=== PATIENT | male | born 1975 | race African-American/Black ===

== ENCOUNTER 2017-01-26 02:09 | Inpatient (IN) ==
[2017-01-26] MEDS ORDERED: FUROSEMIDE 100 MG/10 ML VIAL IV STA (04:43)
[2017-01-26] MEDS ORDERED: MORPHINE 2 MG/1 ML SYRINGE IV STA (04:43)
[2017-01-26] MEDS ORDERED: NITROGLYCERIN 2% OINT 1 INCH/GM PACK TOP STA (04:43)
[2017-01-26] MEDS ORDERED: ONDANSETRON 4 MG/2 ML VIAL IV STA (04:43)
[2017-01-26] MEDS ORDERED: hydrALAZINE 20 MG/1 ML VIAL IV STA ×2 (04:43→06:01)
[2017-01-26] MEDS ORDERED: ASPIRIN 325 MG TABLET PO STA (04:43)
[2017-01-26] MEDS ORDERED: hydrALAZINE 20 MG/1 ML VIAL ONE ×2 (04:56→06:20)
[2017-01-26] MEDS ORDERED: NITROGLYCERIN 2% OINT 1 INCH/GM PACK TOP ONE (04:56)
[2017-01-26] MEDS ORDERED: MORPHINE 2 MG/1 ML SYRINGE ONE (04:57)
[2017-01-26] MEDS ORDERED: FUROSEMIDE 40 MG/4 ML VIAL ONE (04:57)
[2017-01-26] MEDS ORDERED: ASPIRIN 325 MG TABLET ONE (04:57)
[2017-01-26] MEDS ORDERED: ONDANSETRON 4 MG/2 ML VIAL ONE (04:57)
[2017-01-26] MEDS ORDERED: FUROSEMIDE 20 MG/2 ML VIAL ONE (04:57)
--- NOTE | 2017-01-26 05:22 | Emergency Department Note ---
Bernabe Pickard Brittany, am scribing for, and in the presence of, Francisco Mayes MD 05:03. Gerber Pickard Charles R, MD, personally performed the services described in this documentation, ascribed by Dariela Kidd in my presence, and it is both accurate and complete . Arrival - Arrival Chief Complaint: Extremity Problem Stated Complaint: fluid problem ED Nursing Triage Note: C/O Swelling to legs. Onset approx one month. Pt states that he tried to see his PCP last week, but he was out of town. Reports medication complaince. Denies chest pain or shortness of breath Mode of Arrival: Ambulatory Limitations: No Limitations Source: Patient, RN Notes Reviewed - History of Present Illness HPI Narrative: Patient is a 41 y/o black male presenting to the ED with c/o bilateral lower extremity swelling and tightness that began two weeks ago, worsening tonight. Patient denies having any associated chest pain, SOB, or wheezing. Patient reports that he attempted to see PCP about this, but Dr. Snyder was out at the time he attempted to have this visit. He denies previous diagnosis of HF. Does have a history of Diabetes Mellitus. Denies tobacco use. No history of Sleep Apnea. Patient is hypertensive on the monitor with a blood pressure reading of 190/126 mmHg. Reports a history of HTN. No further complaints. Allergies/Adverse Reactions: Allergies Allergy/AdvReac Type Severity Reaction Status Date / Time Penicillins Allergy RASH Verified 11/09/16 01:52 Home Medications: Home Medications Medication Instructions Recorded Confirmed Type Quinapril [Accupril] 20 mg PO DAILY 10/01/14 01/26/17 History glipiZIDE [Glucotrol] 10 mg PO BIDAC 10/01/14 01/26/17 History metFORMIN [Glucophage] 500 mg PO BID W/MEALS 10/01/14 01/26/17 History Bumetanide 2 mg PO DAILY 01/26/17 01/26/17 History Review of System - Review of System 12 point system: reviewed and no additional remarkable complaints except as stated - Review of System Respiratory: Absent: respiratory distress, wheezing Cardiovascular: Present: edema. Absent: chest pain Gastrointestinal: Absent: abdominal pain, nausea, vomiting Genitourinary male: Absent: urgency, dysuria, frequency Musculoskeletal: Present: other (lower extremity tightness). Absent: arm pain, back pain, leg pain, neck pain Skin: Absent: rash Neurological: Absent: headache Medical,Surgical,& Family Hx - Medical History Cardio: History of: Hypertension Endocrine: History of: Diabetes Mellitus (NIDDM) - Social History Smoking Status: Never smoker Frequency of Alcohol Use: None Type of Drug Use: None Exam Vital Signs: Vital Signs Temperature 98.0 F 01/26/17 02:18 Pulse Rate 102 H 01/26/17 02:18 Respiratory Rate 20 01/26/17 02:18 Blood Pressure 193/122 01/26/17 02:18 O2 Sat by Pulse Oximetry 98 01/26/17 02:18 - General General appearance: alert, in no apparent distress, obese (morbidly) - Head Head exam: Present: atraumatic, normocephalic - Eye Eye exam: Present: PERRL, EOMI - ENT ENT exam: Present: normal exam, normal oropharynx - Neck Neck exam: Present: normal inspection, full ROM, trachea midline - Chest Chest inspection: Present: normal inspection, symmetric chest wall rise - Respiratory Respiratory exam: Present: rales (basilar). Absent: normal lung sounds bilaterally - Cardiovascular Cardiovascular exam: Present: normal rhythm, tachycardia, normal heart sounds. Absent: regular rate - Abdominal Exam Abdominal exam: Present: soft, distention, normal bowel sounds. Absent: tenderness - Extremities Exam Extremities exam: Present: pedal edema (+3 edema to bilateral lower extremities) . Absent: calf tenderness, other (Shoaib's sign) - Back Exam Back exam: Present: normal inspection - Neurological Exam Neurological exam: Present: alert, oriented X3, CN II-XII intact. Absent: motor sensory deficit - Psychiatric Psychiatric exam: Present: normal affect, normal mood - Skin Skin exam: Present: warm, dry, intact, normal color Course - Consultations Consultation #1: Hospitalist will admit patient Time: 06:06 Results - Labs CBC & BMP: 01/26/17 05:18 01/26/17 05:18 Lab Results: I have reviewed the patients labs Labs: Laboratory Tests 01/26/17 05:18 WBC 9.8 RBC 4.93 Hgb 14.0 Hct 42.7 MCV 86.6 L Plt Count 237 Lymph % (Auto) 21.0 L [place] # (Auto) 1.1 H Critical Care Time Critical Care Time: Yes Total Critical Care Time: 60 Disposition Clinical Impression: Lower extremity edema, Hypertensive urgency, CHF (congestive heart failure), Hyperglycemia Case discussed with: patient Disposition: Still a Patient Condition: Guarded Time of Disposition: 06:07
--- NOTE | 2017-01-26 05:22 | EKG Report ---
Stationary ECG Study [facility] ER Test Date: 01/26/2017 5:20:55 AM Pat Name: ANTHONY MENCHACA Department: Room: 122 Gender: M Nitro Man: : 1975 Requested by: Francisco Melgar Order Number: [id number] Reading MD: TRUDI JOSUE Intervals [place] Rate: 102 P: 59 AR: 156 QRS: -18 QRSD: 106 T: 62 QT: 368 QTc: 427 Interpretive Statements SINUS TACHYCARDIA Electronically Signed On 01-26-17 17:59:55 CDT by TRUDI JOSUE [email or web address]
[2017-01-26 05:26] LABS: Basophils # 0.1 10*3/uL (0.0-0.2); Basophils % 0.6 % (0.0-0.8); Eosinophils # 0.4 10*3/uL (0.0-0.87); Eosinophils % 3.6 % (0.00-10.9); Hematocrit 42.7 VOL% (42.0-52.0); Immature Granulocytes % 0.2 %; Immature Granulocytes Absolute 0.02 #; Lymphocytes # 2.1 10*3/uL (1.4-4.0); Mean Corpuscular HGB Conc 32.8 GM/DL (32-36); Mean Corpuscular Hemoglobin 28 PG (27-34); Mean Corpuscular Volume 86.6 FL (87-102); Mean Platelet Volume 11.4 FL (9.6-12.0); Monocytes # 1.1 10*3/uL (0.11-0.8); Monocytes % 10.7 % (1.7-12.7); Neutrophils # 6.3 10*3/uL (1.4-7.4); Neutrophils % 63.9 % (38.7-73.9); Platelet Count 237 T/CUMM (130-400); Red Blood Count 4.93 MC/CUMM (3.8-5.5); Red Cell Distribution Width 13.9 % (9.3-17.3); White Blood Count 9.8 T/CUMM (4-12)
[2017-01-26 05:33] LABS: PT Patient Result 10.6 SECS
[2017-01-26 05:39] LABS: Apearance,Urine CLEAR (Clear); Bilirubin,Urine Negative (Negative); Blood, Urine Moderate mg/dL (Negative); Glucose,Urine (UA) >=500 mg/dL (Negative); Hyaline Casts,Urine 1 /LPF (0-3); Ketones,Urine Negative (Negative); Nitrite,Urine Negative (Negative); Protein,Urine >=500 MG/DL; RBC,Urine 12 /HPF (0-4); Urine Color Yellow (Yellow); Urine Specific Gravity 1.022 (1.001-1.035); Urine Urobilinogen < 2.0 EU/DL (0.2-1.0); WBC,Urine <1 /HPF (0-6)
[2017-01-26 05:44] LABS: Barbiturates Screen,Urine Negative (Negative); Benzodiazepines Screen,Urine Negative (Negative); Cannabinoid Screen,Urine Negative (Negative); Opiate Screen,Urine Negative (Negative); Phencyclidine Screen,Urine Negative (Negative)
[2017-01-26 06:19] LABS: Alanine Aminotransferase 27 U/L (16-61); Albumin 3.1 G/DL (3.4-5.0); Alkaline Phosphatase 98 U/L (45-117); Aspartate Amino Transferase 19 U/L (0-37); Bilirubin,Total < 0.39 MG/DL (0.2-1.0); Blood Urea Nitrogen 21 MG/DL (7-18); Calcium 8.9 MG/DL (8.5-10.1); Glucose 358 MG/DL (74-106); Magnesium 2.3 MG/DL (1.8-2.4); Osmolality,Calculated 286.1 MOS/KG (273-304); Sodium 135 MMOL/L (136-145); Total Protein 6.7 G/DL (6.4-8.3); Troponin I Only 0.036 NG/ML (0.00-0.045)
[2017-01-26] MEDS ORDERED: niCARdipine 25 MG/10 ML VIAL IV ONE (06:20)
[2017-01-26] MEDS ORDERED: INSULIN REGULAR 100 UNIT/ML SUBCUT STA (06:22)
[2017-01-26] MEDS ORDERED: INSULIN REGULAR 100 UNIT/ML ONE (06:43)
[2017-01-26] MEDS: niCARdipine INJ 25 MG in SODIUM CHLORIDE 0.9% 240 ML IV SCH ×3 (06:45→21:41)
[2017-01-26] MEDS ORDERED: ACETAMINOPHEN 325 MG TABLET PO PRN (06:56)
[2017-01-26] MEDS ORDERED: ZALEPLON 5 MG CAPSULE PO PRN (06:56)
[2017-01-26] MEDS ORDERED: ONDANSETRON 4 MG/2 ML VIAL IV PRN (06:56)
[2017-01-26] MEDS ORDERED: GLUCAGON 1 MG VIAL IM PRN (06:56)
[2017-01-26] MEDS ORDERED: DEXTROSE 50% 25 GM/50 ML SYRINGE IV PRN (06:56)
[2017-01-26] MEDS ORDERED: MORPHINE 2 MG/1 ML SYRINGE IV PRN (06:56)
--- NOTE | 2017-01-26 07:07 | Hospitalist History & Physical ---
Assessment and Plan (1) Hypertensive urgency Status: Acute Assessment and plan: started on cardene infusion in ER Admit to CCU add norvasc and Aldactone hold bumex start IV lasix 2 D echo Cardiology consult Current Visit: Yes (2) Lower extremity edema Status: Acute Current Visit: Yes (3) DM2 (diabetes mellitus, type 2) Status: Chronic Current Visit: Yes Qualifiers: Diabetes mellitus termite renewal inspector insulin use: without fci use (4) CHF (congestive heart failure) Status: Acute Assessment and plan: follow up echo Current Visit: Yes Qualifiers: Congestive heart failure type: unspecified congestive heart failure type Congestive heart failure chronicity: unspecified congestive heart failure chronicity Qualified Code(s): I50.9 - Heart failure, unspecified (5) Hyperglycemia Status: Acute Assessment and plan: ssi and accu checks Current Visit: Yes History of Present Illness Chief complaint: leg swelling and elevated BP History of present illness: Mr. Hammond is a 41 year old male that came to the ED with c/o bilateral lower extremity swelling and tightness that began two weeks ago, worsening tonight. Patient denies having any associated chest pain, SOB, or wheezing. Patient reports that he attempted to see PCP about this, but Dr. Snyder was out at the time he attempted to have this visit. He denies previous diagnosis of HF. Does have a history of Diabetes Mellitus. Denies tobacco use. No history of Sleep Apnea. Patient is hypertensive on the monitor with a blood pressure reading of 190/126 mmHg. Reports a history of HTN. He reports compliance with his BP meds and Bumex. 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 His BP at the time of my visit was 214/110. This is an acute exacerbation of his chronic hypertension. Home medications reviewed and reconciled. He is a full code Home Medications Medication Instructions Recorded Confirmed Type Quinapril [Accupril] 20 mg PO DAILY 10/01/14 01/26/17 History glipiZIDE [Glucotrol] 10 mg PO BIDAC 10/01/14 01/26/17 History metFORMIN [Glucophage] 500 mg PO BID W/MEALS 10/01/14 01/26/17 History Bumetanide 2 mg PO DAILY 01/26/17 01/26/17 History Allergies Allergy/AdvReac Type Severity Reaction Status Date / Time Penicillins Allergy RASH Verified 11/09/16 01:52 Medical,Surgical,& Family Hx - Medical History Cardio: History of: Hypertension Endocrine: History of: Diabetes Mellitus (NIDDM) - Surgical History Additional Surgical History: no previous surgeries - Family History Family History: Reports;: Family Diabetes, Family Heart Disease, Family Hypertension - Social History Smoking Status: Never smoker Have you smoked in the last 12 months: No Frequency of Alcohol Use: None Type of Drug Use: None Marital Status: Single Lives With:: Alone Functional capacity: independent ambulation 12 point system: reviewed and no additional remarkable complaints except as stated Exam - Constitutional Vitals: Period Temp Pulse Resp BP Sys/Palacios Pulse Ox Last 24 Hr 98.0 F-98.0 F 102-102 20-20 193-193/122-122 98 Exam: Constitutional System: Mild distress. No tremulousness. Morbidly obese Head: Normocephalic, atraumatic. Ears, Nose and Throat System: No pain or tenderness. No epistaxis or discharge Eyes System: Pupils equal, round, and reactive. Extraocular muscles intact. Neck: Supple, without adenopathy, No jugular venous distention. No thyromegaly, neck mass, or prior surgery apparent. Respiratory System: Chest clear to auscultation. Cardiovascular System: Heart with regular rate and rhythm. No murmur. GI System: Abdomen soft, nontender. Normo active bowel sounds present. Musculoskeletal System: limbs with bilateral pitting pedal edema. Full distal pulses. Normal capillary refill. Neurological System: No discernable sensory deficit. No aphasia Psychiatric System: Conversation is rational Results - Labs CBC & BMP: 01/26/17 05:18 01/26/17 05:18 Lab Results: I have reviewed the past 24 hour labs - Diagnostic Findings Procedure: Chest x-ray: report reviewed by me, image reviewed by me
[2017-01-26 08:38] LABS: CKMB % 1.6 %; Troponin I Only 0.031 NG/ML (0.00-0.045)
[2017-01-26] MEDS ORDERED: amLODIPine 5 MG TABLET PO SCH (09:00)
[2017-01-26] MEDS ORDERED: NON-FORMULARY MEDICATION (Bumetanide [Bumetanide] 2 MG) PO SCH (09:00)
--- NOTE | 2017-01-26 09:23 | XRay Report ---
Single view the chest. Indication: Shortness of breath. Comparison: November 09, 2016. The heart is enlarged. The pulmonary vasculature is prominent. No consolidation, pneumothorax, or pleural effusion. Scarring in the left midlung field. Impression: Cardiomegaly and venous congestion. PROCEDURE INTERPRETED AT [facility] DEPARTMENT OF RADIOLOGY Final Report Signed by: Dr. Christie Gunderson
[2017-01-26] MEDS: FUROSEMIDE 40 MG/4 ML VIAL IV SCH ×2 (09:36→16:24)
--- NOTE | 2017-01-26 09:37 | Cardiology Consult Note ---
Assessment and Plan (1) Lower extremity edema Status: Acute Assessment and plan: 41-year-old black male, presented with hypertensive emergency, volume overload, CHF. No demand ischemia. -Continue IV diuresis. Once off, suggest adding HCTZ to his blood pressure regimen -Echo -Continue amlodipine, start Coreg 12.5 mg twice daily, continue BING inhibitor. Continue weaning off the Cardene drip -Check lipid panel, hemoglobin A1c, TFTs -Aspirin 81 mg daily. -Sleep consult, suspect PREMA -Cardiac Rehab consult. Current Visit: Yes (2) Hypertensive urgency Status: Acute Current Visit: Yes (3) CHF (congestive heart failure) Status: Acute Current Visit: Yes Qualifiers: Congestive heart failure type: unspecified congestive heart failure type Congestive heart failure chronicity: unspecified congestive heart failure chronicity Qualified Code(s): I50.9 - Heart failure, unspecified (4) Hyperglycemia Status: Acute Current Visit: Yes (5) DM2 (diabetes mellitus, type 2) Status: Chronic Current Visit: Yes Qualifiers: Diabetes mellitus technician terminal and repeater insulin use: without technician terminal and repeater use History of Present Illness - Data of Consult Patient: new to practice Consult date: 01/26/17 - Consult Narrative Reason for consult: HTN urgency History of present illness: Mr. Hammond is a 41 year old BM, with history of hypertension, type 2 diabetes mellitus, obesity. He was admitted with hypertensive urgency, CHF, chest tightness. Symptoms started 2 weeks prior to his presentation with progressive lower extremity edema, dyspnea on exertion, shortness of breath. He was not seen by cardiology in the past. Hypertension, was controlled by quinapril. He snores, had some sleep evaluation in the past, but he did not follow up. Not using CPAP. Morbidly obese. Type 2 diabetes mellitus, controlled with medications. He was diuresed in the ER and put on Cardene drip, blood pressure improved, he is not feeling much better, shortness of breath resolved. He still has 2-3+ lower extremity edema. He does not smoke with no drugs or significant EtOH. EKG showed sinus tachycardia, without significant ectopy, without major ischemic changes. Normal creatinine, normal troponin, CC: Susanne Su MD - Home Medications and Allergies Home Medications: Home Medications Medication Instructions Recorded Confirmed Type Quinapril [Accupril] 40 mg PO DAILY 10/01/14 01/26/17 History glipiZIDE [Glucotrol] 10 mg PO BIDAC 10/01/14 01/26/17 History metFORMIN [Glucophage] 500 mg PO BID W/MEALS 10/01/14 01/26/17 History Bumetanide 2 mg PO DAILY 01/26/17 01/26/17 History Allergies/Adverse Reactions: Allergies Allergy/AdvReac Type Severity Reaction Status Date / Time Penicillins Allergy RASH Verified 11/09/16 01:52 12 point system: reviewed and no additional remarkable complaints except as stated Medical,Surgical,& Family Hx - Medical History Cardio: History of: Hypertension Endocrine: History of: Diabetes Mellitus (NIDDM) - Family History Family History: Reports;: Family Diabetes, Family Heart Disease, Family Hypertension - Social History Smoking Status: Never smoker Frequency of Alcohol Use: None Type of Drug Use: None Physical Examination Vital Signs Temp Pulse Resp BP Pulse Ox 98.0 F 102 H 20 193/122 98 01/26/17 02:18 01/26/17 02:18 01/26/17 02:18 01/26/17 02:18 01/26/17 02:18 General: Present: Appears Well, No Apparent Distress HEENT: Present: Normocephaly, Mucus Membranes Moist Neck: Present: Supple Neck, No JVD/HJR Cardiac: Present: Regular Rate, Regular Rhythm, S1/S2, Systolic Murmur. Absent : Laterally Displaced Lungs: Present: Normal Exam, Clear Ascult./Percussion Neuro: Present: Grossly Intact Abdomen: Present: Soft, Active Bowel Sounds, No Masses, No Pulsations/Bruits Skin: Present: Clear, Black. Absent: Rash Extremities: Present: No Clubbing, No Cyanosis, +3 Edema Result/EKG - Labs CBC & BMP: 01/26/17 05:18 01/26/17 05:18 Lab Results: I have reviewed the past 24 hour labs Labs: Laboratory Results - last 24 hr 01/26/17 01/26/17 01/26/17 05:18 05:18 05:18 WBC 9.8 RBC 4.93 Hgb 14.0 Hct 42.7 MCV 86.6 L MCH 28 MCHC 32.8 RDW 13.9 Plt Count 237 MPV 11.4 Neut % (Auto) 63.9 Lymph % (Auto) 21.0 L [place] % (Auto) 10.7 Eos % (Auto) 3.6 Baso % (Auto) 0.6 Neut # (Auto) 6.3 Lymph # (Auto) 2.1 [place] # (Auto) 1.1 H Eos # (Auto) 0.4 Baso # (Auto) 0.1 Immature Gran % 0.2 Nucleated RBC % 0.0 Immature Gran # 0.02 Nucleated RBCs # 0.00 Immature Plt Fraction 0.0 INR 1.0 PT Patient/Control Mix 10.6 Sodium 135 L Potassium 4.0 Chloride 101 Carbon Dioxide 30 Anion Gap 8.0 BUN 21 H Creatinine 1.20 GFR Calculation 138 BUN/Creatinine Ratio 17.00 Glucose 358 H POC Glucose Calculated Osmolality 286.1 Calcium 8.9 Magnesium 2.3 Total Bilirubin < 0.39 AST 19 ALT 27 Alkaline Phosphatase 98 Total Creatine Kinase CK-MB (CK-2) CK and CKMB Interp Troponin I 0.036 B-Natriuretic Peptide Total Protein 6.7 Albumin 3.1 L Globulin 3.6 H Albumin/Globulin Ratio 0.8 L Urine Color Urine Appearance Urine pH Ur Specific [place] Urine Protein Urine Glucose (UA) Urine Ketones Urine Blood Urine Nitrate Urine Bilirubin Urine Urobilinogen Urine Leukocytes Urine RBC Urine WBC Hyaline Casts Ur Culture Indicated? Urine Opiates Screen Ur Barbiturates Screen Ur Phencyclidine Scrn U Amphetamine/Methamph U Benzodiazepines Scrn U Cocaine Metab Screen U Cannabinoids Screen 01/26/17 01/26/17 01/26/17 05:18 05:22 05:22 WBC RBC Hgb Hct MCV MCH MCHC RDW Plt Count MPV Neut % (Auto) Lymph % (Auto) [place] % (Auto) Eos % (Auto) Baso % (Auto) Neut # (Auto) Lymph # (Auto) [place] # (Auto) Eos # (Auto) Baso # (Auto) Immature Gran % Nucleated RBC % Immature Gran # Nucleated RBCs # Immature Plt Fraction INR PT Patient/Control Mix Sodium Potassium Chloride Carbon Dioxide Anion Gap BUN Creatinine GFR Calculation BUN/Creatinine Ratio Glucose POC Glucose Calculated Osmolality Calcium Magnesium Total Bilirubin AST ALT Alkaline Phosphatase Total Creatine Kinase CK-MB (CK-2) CK and CKMB Interp Troponin I B-Natriuretic Peptide 300 H Total Protein Albumin Globulin Albumin/Globulin Ratio Urine Color Yellow Urine Appearance Clear Urine pH 6.0 Ur Specific [place] 1.022 Urine Protein >=500 Urine Glucose (UA) >=500 Urine Ketones Negative Urine Blood Moderate Urine Nitrate Negative Urine Bilirubin Negative Urine Urobilinogen < 2.0 H Urine Leukocytes Negative Urine RBC 12 Urine WBC <1 Hyaline Casts 1 Ur Culture Indicated? Not indicated Urine Opiates Screen Negative Ur Barbiturates Screen Negative Ur Phencyclidine Scrn Negative U Amphetamine/Methamph Negative U Benzodiazepines Scrn Negative U Cocaine Metab Screen Negative U Cannabinoids Screen Negative 01/26/17 01/26/17 07:59 08:25 WBC RBC Hgb Hct MCV MCH MCHC RDW Plt Count MPV Neut % (Auto) Lymph % (Auto) [place] % (Auto) Eos % (Auto) Baso % (Auto) Neut # (Auto) Lymph # (Auto) [place] # (Auto) Eos # (Auto) Baso # (Auto) Immature Gran % Nucleated RBC % Immature Gran # Nucleated RBCs # Immature Plt Fraction INR PT Patient/Control Mix Sodium Potassium Chloride Carbon Dioxide Anion Gap BUN Creatinine GFR Calculation BUN/Creatinine Ratio Glucose POC Glucose 329 H Calculated Osmolality Calcium Magnesium Total Bilirubin AST ALT Alkaline Phosphatase Total Creatine Kinase 421 H CK-MB (CK-2) 6.7 H CK and CKMB Interp 1.6 Troponin I 0.031 B-Natriuretic Peptide Total Protein Albumin Globulin Albumin/Globulin Ratio Urine Color Urine Appearance Urine pH Ur Specific [place] Urine Protein Urine Glucose (UA) Urine Ketones Urine Blood Urine Nitrate Urine Bilirubin Urine Urobilinogen Urine Leukocytes Urine RBC Urine WBC Hyaline Casts Ur Culture Indicated? Urine Opiates Screen Ur Barbiturates Screen Ur Phencyclidine Scrn U Amphetamine/Methamph U Benzodiazepines Scrn U Cocaine Metab Screen U Cannabinoids Screen - EKG EKG results: interpreted by me
[2017-01-26] MEDS: ENOXAPARIN 40 MG/0.4 ML SYRINGE SUBCUT SCH (09:38)
[2017-01-26] MEDS: QUINAPRIL 20 MG TABLET PO SCH (09:39)
[2017-01-26] MEDS: SPIRONOLACTONE 25 MG TABLET PO SCH ×2 (09:39→20:11)
[2017-01-26] MEDS: glipiZIDE 10 MG TABLET PO SCH ×2 (09:39→17:20)
[2017-01-26] MEDS: PANTOPRAZOLE 40 MG TABLET PO SCH (09:40)
[2017-01-26] MEDS: CARVEDILOL 12.5 MG TABLET PO SCH ×2 (10:35→20:11)
[2017-01-26] MEDS: ASPIRIN EC 81 MG TABLET PO SCH (10:36)
[2017-01-26] MEDS ORDERED: DEXTROSE 50% 25 GM/50 ML VIAL IV PRN (12:06)
--- NOTE | 2017-01-26 12:19 | Hospitalist Progress Note ---
Assessment and Plan (1) CHF (congestive heart failure) Status: Acute Assessment and plan: Echocardiogram, cardiology consulted, diuresis with Lasix, continue Coreg and BING inhibitor Current Visit: Yes Qualifiers: Congestive heart failure type: unspecified congestive heart failure type Congestive heart failure chronicity: unspecified congestive heart failure chronicity Qualified Code(s): I50.9 - Heart failure, unspecified (2) Hypertensive urgency Status: Acute Assessment and plan: Patient is currently on a Cardene drip, started Coreg 12.5 mg p.o. twice daily, continue Norvasc 5, continue quinapril and diuretics, wean off Cardene drip Current Visit: Yes (3) Morbid obesity Status: Acute Assessment and plan: Needs to desperately lose weight. Mortality high if he does not change his lifestyle Current Visit: Yes (4) Lower extremity edema Status: Acute Assessment and plan: Due to left and right heart failure. Diuresis with Lasix IV Current Visit: Yes (5) DM2 (diabetes mellitus, type 2) Status: Chronic Assessment and plan: Restarted glipizide, increase metformin, Lantus 50 units, high-dose insulin sliding scale Current Visit: Yes Qualifiers: Diabetes mellitus residential insulin use: without continuous churn buttermaker use (6) Obstructive sleep apnea Status: Acute Assessment and plan: Consult Dr. Og for evaluation and treatment Current Visit: Yes Hospitalist: Subjective Interval history: She is morbidly obese. I am concerned about left heart failure and right heart failure. He definitely has obstructive sleep apnea will have Dr. Og see him in a.m. He is on a Cardene drip we have started him on a high dose of Coreg and will try to rapidly wean him off the Cardene. I would avoid high doses of Norvasc as it increases his swelling. He has enormous legs some of which is chronic lymphedema and some of it just needs better diuresis. Patient' s blood sugars are over 300. I have started him on a high dose of Lantus and we started him on Metformin and glipizide. Exam - Constitutional Vitals: Period Temp Pulse Resp BP Sys/Palacios Pulse Ox Last 24 Hr 98.0 F-98.8 F 93-117 19-27 132-205/74-124 91-98 Exam: Heart Rate-[tachy] Lungs-[CTAB but diminsihed] GI-[+bs soft, NT, obese] Ext-[3+ edema/lymphedema] Neuro [Motor 5/5], [alert and oriented times 3] psych [normal mood and flat affect] General [no acute distress] Results - Labs CBC & BMP: 01/26/17 05:18 01/26/17 05:18 Lab Results: I have reviewed the past 24 hour labs - Diagnostic Findings Procedure: Chest x-ray: report reviewed by me (Cardiomegaly with pulmonary edema )
[2017-01-26] MEDS: metFORMIN 500 MG TABLET PO SCH ×2 (12:34→17:20)
[2017-01-26] MEDS: INSULIN REGULAR 100 UNIT/ML SUBCUT SCH ×3 (12:35→20:00)
[2017-01-26] MEDS: INSULIN GLARGINE 100 UNIT/ML SUBCUT SCH (12:35)
[2017-01-26 13:55] LABS: Troponin I Only 0.043 NG/ML (0.00-0.045)
--- NOTE | 2017-01-26 15:17 | Ultrasound Report ---
Bilateral lower extremity venous Doppler with juarez scale, Spectral Doppler and color-flow analysis performed and interpreted. Indication: Leg swelling Scanning over both common femoral veins, superficial femoral veins, greater saphenous veins and popliteal veins demonstrates normal compressibility, color flow, and augmentation. Impression: No evidence of DVT seen in either lower extremity. The Ultrasound images were captured and stored. PROCEDURE INTERPRETED AT [facility] DEPARTMENT OF RADIOLOGY Final Report Signed by: Dr. Christie Gunderson
--- NOTE | 2017-01-26 15:41 | ECHO Report ---
Lani Hammond Exam Date: 01/26/2017 09:44 Referring Physician: Technologist: gurpreet Davenport ARDMS, RVT Age: 41 Ht (in): 74 Wt (lb): 345 Gender: M Exam Location: [facility] Echo Indications: HTN urgency, DM, Hyperglycemia, CHF, Lower extremity edema BP: 178 / 86 HR: 105 Rhythm: Sinus Technical Quality: Technically difficult study IMPRESSIONS Normal left ventricular size, with moderate concentric hypertrophy, with normal systolic function. Estimated left ventricular ejection fraction 55%. Grade 3 diastolic dysfunction. Mild biatrial enlargement. Mildly dilated right ventricle, with normal systolic function. Mild aortic valve sclerosis, without stenosis or insufficiency. MEASUREMENTS (Male / Female) Normal Values 2D ECHO LV Diastolic Diameter PLAX 5.9 cm 4.2 - 5.9 / 3.9 - 5.3 cm LV Systolic Diameter PLAX 4.6 cm LV Fractional Shortening PLAX 22.2 % IVS Diastolic Thickness 1.7 cm 0.6 - 1.0 / 0.6 - 0.9 cm LVPW Diastolic Thickness 1.5 cm 0.6 - 1.0 / 0.6 - 0.9 cm RV Internal Dim ED PLAX 4.1 cm Aortic Root Diameter 3.5 cm LA Systolic Diameter LX 4.4 cm 3.0 - 4.0 / 2.7 - 3.8 cm DOPPLER TR Peak Velocity 236.0 cm/s TR Peak Gradient 22.3 mmHg FINDINGS Left Ventricle Normal left ventricular size, with moderate concentric hypertrophy, with normal systolic function. Estimated left ventricular ejection fraction 55%. Grade 3 diastolic dysfunction. Right Ventricle Mildly dilated right ventricle, with normal systolic function. Right Atrium The right atrium is mildly enlarged. Left Atrium The left atrium is mildly enlarged. Mitral Valve Morphologically normal mitral valve without significant stenosis or prolapse. Trace mitral valve regurgitation. Aortic Valve Mild aortic valve sclerosis, without stenosis or insufficiency. Tricuspid Valve Morphologically normal tricuspid valve without significant stenosis or regurgitation. Insufficient data to estimate pulmonary artery systolic pressure. Pulmonic Valve Morphologically normal pulmonic valve without significant stenosis. There is no pulmonic regurgitation. Pericardium Normal pericardium without effusion. Aorta Normal ascending aorta dimension. Miller Garner (Electronically Signed) Final Date: 26 January 2017 15:40
[2017-01-26] MEDS ORDERED: metFORMIN 500 MG TABLET PO SCH (17:00)
[2017-01-26 20:16] LABS: Troponin I Only 0.057 NG/ML (0.00-0.045)
[2017-01-27] MEDS: niCARdipine INJ 25 MG in SODIUM CHLORIDE 0.9% 240 ML IV SCH ×2 (03:04→06:37)
[2017-01-27 06:37] LABS: Basophils # 0.1 10*3/uL (0.0-0.2); Basophils % 0.6 % (0.0-0.8); Eosinophils # 0.4 10*3/uL (0.0-0.87); Hematocrit 42.1 VOL% (42.0-52.0); Hemoglobin 13.5 GM/DL (14.0-18.0); Immature Granulocytes % 0.2 %; Immature Granulocytes Absolute 0.02 #; Lymphocytes # 1.8 10*3/uL (1.4-4.0); Lymphocytes % 20.8 % (21.2-54.2); Mean Corpuscular HGB Conc 32.1 GM/DL (32-36); Mean Corpuscular Hemoglobin 28 PG (27-34); Mean Corpuscular Volume 88.1 FL (87-102); Mean Platelet Volume 12.1 FL (9.6-12.0); Monocytes # 0.9 10*3/uL (0.11-0.8); Monocytes % 10.5 % (1.7-12.7); Neutrophils # 5.6 10*3/uL (1.4-7.4); Neutrophils % 63.9 % (38.7-73.9); Platelet Count 232 T/CUMM (130-400); Red Blood Count 4.78 MC/CUMM (3.8-5.5); Red Cell Distribution Width 13.9 % (9.3-17.3); White Blood Count 8.8 T/CUMM (4-12)
[2017-01-27 07:27] LABS: Albumin 2.5 G/DL (3.4-5.0); Bilirubin,Total 0.6 MG/DL (0.2-1.0); Calcium 8.7 MG/DL (8.5-10.1); Magnesium 2.2 MG/DL (1.8-2.4); Osmolality,Calculated 285.3 MOS/KG (273-304); Potassium 3.8 MMOL/L (3.5-5.1); Risk Ratio 5.65; Thyroid Stimulating Hormone 1.63 uIU/ml (0.358-3.74); Total Protein 5.9 G/DL (6.4-8.3); VLDL CHOLESTEROL 24.6 MG/DL
--- NOTE | 2017-01-27 07:32 | EKG Report ---
Stationary ECG Study [facility] Test Date: 01/27/2017 7:33:18 AM Pat Name: ANTHONY MENCHACA Department: Room: 122 Gender: M Cleat Blanker: DAVID : 1975 Requested by: Sivakumar Amador Order Number: [id number] Reading MD: MICHAELA MICHAEL Intervals [place] Rate: 89 P: 71 DC: 158 QRS: 128 QRSD: 98 T: -17 QT: 374 QTc: 421 Interpretive Statements SINUS RHYTHM POSSIBLE RIGHT VENTRICULAR HYPERTROPHY WITH RIGHT AXIS DEVIATION MODERATE T-WAVE ABNORMALITY, CONSIDER LATERAL ISCHEMIA Electronically Signed On 01-27-17 19:00:35 CDT by MICHAELA MICHAEL [email or web address]
[2017-01-27] MEDS ORDERED: NIFEdipine 10 MG CAPSULE PO PRN (08:28)
[2017-01-27] MEDS: INSULIN REGULAR 100 UNIT/ML SUBCUT SCH ×4 (08:35→20:21)
--- NOTE | 2017-01-27 08:49 | Hospitalist Progress Note ---
Assessment and Plan (1) CHF (congestive heart failure) Status: Acute Assessment and plan: The patient is admitted to the hospital with hypertensive emergency causing acute on chronic congestive heart failure with preserved ejection fraction. Echocardiogram reveals ejection fraction of 55% with moderate concentric hypertrophy as expected due to hypertension. The patient will make transition to oral medications today and transfer to telemetry monitoring unit for further blood pressure management and observation. We will recheck renal function tomorrow and decrease diuretic to once daily. Current Visit: Yes Qualifiers: Congestive heart failure type: diastolic Congestive heart failure chronicity: acute on chronic Qualified Code(s): I50.33 - Acute on chronic diastolic (congestive) heart failure (2) Hypertensive emergency Status: Acute Current Visit: Yes (3) DM2 (diabetes mellitus, type 2) Status: Chronic Current Visit: Yes Qualifiers: Diabetes mellitus complication status: with hyperglycemia Diabetes mellitus intermediate insulin use: without intermediate use Qualified Code(s): E11.65 - Type 2 diabetes mellitus with hyperglycemia (4) Morbid obesity Status: Acute Current Visit: Yes (5) Obstructive sleep apnea Status: Acute Current Visit: Yes Hospitalist: Subjective Interval history: The patient was admitted to the hospital with hypertensive emergency. The patient had good diuresis and blood pressure control has improved. The patient does not complain of shortness of breath, angina, palpitations today. The patient will transfer to telemetry monitoring unit after Cardene infusion is weaned off. Exam - Constitutional Vitals: Period Temp Pulse Resp BP Sys/Palacios Pulse Ox Last 24 Hr 97.1 F-98.9 F 83-114 16-28 111-203/11-130 90-99 Exam: Constitutional System: Minimal distress. No tremulousness. Head: Normocephalic, atraumatic. Ears, Nose and Throat System: No evidence of Otitis or Mastoiditis. No epistaxis or discharge Eyes System: Pupils equal, round, and reactive. Extraocular muscles intact. Neck: Supple, without adenopathy, No jugular venous distention. No thyromegaly , neck mass, or prior surgery apparent. Respiratory System: Chest few rales in bases to auscultation. Cardiovascular System: Heart with regular rate and rhythm. S4 murmur. GI System: Abdomen soft, nontender. Normo active bowel sounds present. Musculoskeletal System: limbs with trace pedal edema. Full distal pulses. Neurological System: No discernable sensory deficit. No aphasia Psychiatric System: Conversation is rational Results - Labs CBC & BMP: 01/27/17 04:35 01/27/17 04:35 Lab Results: I have reviewed the past 24 hour labs Specialty Discharge - Follow Up or Referrals
[2017-01-27] MEDS: FUROSEMIDE 40 MG/4 ML VIAL IV SCH (08:56)
[2017-01-27] MEDS ORDERED: FUROSEMIDE 40 MG/4 ML VIAL IV SCH (09:00)
[2017-01-27] MEDS ORDERED: amLODIPine 10 MG TABLET PO SCH (09:00)
[2017-01-27] MEDS: metFORMIN 500 MG TABLET PO SCH ×2 (09:01→17:02)
[2017-01-27] MEDS: PANTOPRAZOLE 40 MG TABLET PO SCH (09:02)
[2017-01-27] MEDS: glipiZIDE 10 MG TABLET PO SCH ×2 (09:02→17:02)
[2017-01-27] MEDS: QUINAPRIL 20 MG TABLET PO SCH (09:02)
[2017-01-27] MEDS: ASPIRIN EC 81 MG TABLET PO SCH (09:02)
[2017-01-27] MEDS: CARVEDILOL 12.5 MG TABLET PO SCH (09:03)
[2017-01-27] MEDS: ENOXAPARIN 40 MG/0.4 ML SYRINGE SUBCUT SCH (09:03)
[2017-01-27] MEDS: INSULIN GLARGINE 100 UNIT/ML SUBCUT SCH (09:04)
[2017-01-27] MEDS: SPIRONOLACTONE 25 MG TABLET PO SCH (09:06)
--- NOTE | 2017-01-27 09:17 | Cardiology Progress Note ---
<Christie Rios - Last Filed: 01/27/17 11:13> Assessment and Plan - Time spent with patient Time spent with patient: Greater than 30 minutes (1) CHF (congestive heart failure) Status: Acute Assessment and plan: SEE PLAN OF CARE LISTED BELOW. Current Visit: Yes Qualifiers: Congestive heart failure type: diastolic Congestive heart failure chronicity: acute on chronic Qualified Code(s): I50.33 - Acute on chronic diastolic (congestive) heart failure (2) Unspecified sleep apnea Status: Acute Assessment and plan: SEE PLAN OF CARE LISTED BELOW. Current Visit: Yes (3) Hypertensive urgency Status: Acute Assessment and plan: SEE PLAN OF CARE LISTED BELOW. Current Visit: Yes (4) Lower extremity edema Status: Chronic Assessment and plan: SEE PLAN OF CARE LISTED BELOW. Current Visit: Yes (5) Morbid obesity Status: Chronic Assessment and plan: SEE PLAN OF CARE LISTED BELOW. Current Visit: Yes (6) DM2 (diabetes mellitus, type 2) Status: Chronic Assessment and plan: SEE PLAN OF CARE LISTED BELOW. Current Visit: Yes Qualifiers: Diabetes mellitus complication status: with hyperglycemia Diabetes mellitus usp insulin use: without usp use Qualified Code(s): E11.65 - Type 2 diabetes mellitus with hyperglycemia Cardiology - PN: Subj Interval history: SKID WRAPPER: New to cardiology, Dr. Garner SUMMARY Mr. Hammond, 41 year old BM with history of hypertension, type 2 diabetes, untreated sleep apnea, obesity and sedentary lifestyle presented with hypertensive urgency, CHF and chest tightness. He was diuresed in the emergency department and placed on Cardene drip. This is now been titrated off. Venous Doppler revealed no evidence of DVT. Echocardiogram this admission revealed preserved EF 55%. Grade 3 diastolic dysfunction. Moderate concentric LVH. 2016 Patient seen and examined in the CCU. He is doing well this morning. Sitting up in bed in no acute distress. Denies chest pain, heaviness and tightness. Reports that his breathing continues to improve with diuresis. He has been weaned off Cardene drip. Blood pressure this morning is suboptimally controlled. His medications have already been adjusted per hospital medicine. We will continue to monitor blood pressure and adjust medications accordingly. Creatinine this morning has risen to 1.7. His Lasix has been decreased today to daily dosing. Chest x-ray in the morning. I have reviewed his daily weights and I's and O's. Unfortunately, his weight has increased since admission. I do not suspect that this is accurate as he has diuresed well with IV Lasix. Will monitor creatinine closely with daily BMP. If continues to rise in the morning will consider holding BING inhibitor as he may not be able to tolerate this medication. I will further discuss with Dr. Beebe and await his additional recommendations. IMPRESSION AND PLAN: 1. ACUTE ON CHRONIC DIASTOLIC CONGESTIVE HEART FAILURE - Preserved EF, 55%. Grade 3 diastolic dysfunction. Shortness of breath is improving. Creatinine and BUN rising. Lasix decreased to daily dosing per attending. According to daily weights patient's weight has titrated up. I do not suspect this is accurate as patient has diuresed well with IV Lasix. At this point, we will continue to diurese patient monitor BMP closely. Chest x-ray in the morning. Continue beta-asa and BING inhibitor. If creatinine continues to rise in the morning will consider holding of BING inhibitor as he may not be able to tolerate this medication. 2. HYPERTENSIVE URGENCY - Cardene drip titrated off. Blood pressure continues to be suboptimally controlled. Medications adjusted this morning per attending. Will monitor blood pressure and continue to adjust as needed this hospitalization. 3. DIABETES - Hemoglobin A1c 11.9. Management per attending. Blood sugars reasonably well controlled. 4. UNSPECIFIED SLEEP APNEA - Sleep medicine consulted. 5. DYSLIPIDEMIA - LDL 197. Statin initiated. Repeat lipid panel in 4-6 weeks. Exam (Progress Note) - Constitutional Vitals: Period Temp Pulse Resp BP Sys/Palacios Pulse Ox Last 24 Hr 97.1 F-98.9 F 83-114 16-28 111-203/11-130 90-99 Exam: General: Appears well with no apparent distress. Pleasant and cooperative. Appears comfortable. HEENT: PERRL, normocephalic, atraumatic. Mucous membranes moist. No jaundice noted. Conjunctiva moist and clear, sclerae anicteric Neck: JVD difficult to assess due to habitus, no thyromegaly or lymphadenopathy noted. No carotid bruit appreciated Cardiac: Regular rate and rhythm. Soft systolic murmur. No rub or gallop. Lungs: Clear to auscultation without accessory muscle use to assist the respiratory pattern. Decreased lung sounds in bilateral bases. Intermittent oxygen. Abdomen: Soft, bowel sounds normoactive. Nontender and nondistended. Obese. No abdominal bruit or thrill noted. No masses noted. Extremities: No clubbing, cyanosis noted. 2-3+ pitting edema to bilateral lower extremities. Upper extremity pulses 2+. Lower extremity pulses 2+. Capillary refill less than 3 seconds. Skin: No unusual lesions or rashes. No skin breakdown appreciated. Neuro: Awake, alert and oriented 3. Moves all extremities well without hemiparesis or paralysis. No essential tremor is appreciated. Result/EKG - Labs CBC & BMP: 01/27/17 04:35 01/27/17 04:35 Lab Results: I have reviewed the past 24 hour labs Labs: Laboratory Results - last 24 hr 01/26/17 01/26/17 01/26/17 11:52 13:21 16:25 WBC RBC Hgb Hct MCV MCH MCHC RDW Plt Count MPV Neut % (Auto) Lymph % (Auto) [place] % (Auto) Eos % (Auto) Baso % (Auto) Neut # (Auto) Lymph # (Auto) [place] # (Auto) Eos # (Auto) Baso # (Auto) Immature Gran % Nucleated RBC % Immature Gran # Nucleated RBCs # Immature Plt Fraction Sodium Potassium Chloride Carbon Dioxide Anion Gap BUN Creatinine GFR Calculation BUN/Creatinine Ratio Glucose POC Glucose 390 H 275 H Hemoglobin A1c Calculated Osmolality Calcium Magnesium Total Bilirubin AST ALT Alkaline Phosphatase Total Creatine Kinase 317 H D CK-MB (CK-2) 5.0 H Troponin I 0.043 B-Natriuretic Peptide Total Protein Albumin Globulin Albumin/Globulin Ratio Triglycerides Cholesterol LDL Cholesterol VLDL Cholesterol HDL Cholesterol Heart Disease Risk Ratio Free T4 TSH 3rd Generation 01/26/17 01/26/17 01/27/17 18:55 19:59 04:35 WBC 8.8 RBC 4.78 Hgb 13.5 L Hct 42.1 MCV 88.1 MCH 28 MCHC 32.1 RDW 13.9 Plt Count 232 MPV 12.1 H Neut % (Auto) 63.9 Lymph % (Auto) 20.8 L [place] % (Auto) 10.5 Eos % (Auto) 4.0 Baso % (Auto) 0.6 Neut # (Auto) 5.6 Lymph # (Auto) 1.8 [place] # (Auto) 0.9 H Eos # (Auto) 0.4 Baso # (Auto) 0.1 Immature Gran % 0.2 Nucleated RBC % 0.0 Immature Gran # 0.02 Nucleated RBCs # 0.00 Immature Plt Fraction 0.0 Sodium Potassium Chloride Carbon Dioxide Anion Gap BUN Creatinine GFR Calculation BUN/Creatinine Ratio Glucose POC Glucose 112 H Hemoglobin A1c Calculated Osmolality Calcium Magnesium Total Bilirubin AST ALT Alkaline Phosphatase Total Creatine Kinase 319 H CK-MB (CK-2) 4.7 H Troponin I 0.057 H D B-Natriuretic Peptide Total Protein Albumin Globulin Albumin/Globulin Ratio Triglycerides Cholesterol LDL Cholesterol VLDL Cholesterol HDL Cholesterol Heart Disease Risk Ratio Free T4 TSH 3rd Generation 01/27/17 01/27/17 01/27/17 04:35 04:35 04:35 WBC RBC Hgb Hct MCV MCH MCHC RDW Plt Count MPV Neut % (Auto) Lymph % (Auto) [place] % (Auto) Eos % (Auto) Baso % (Auto) Neut # (Auto) Lymph # (Auto) [place] # (Auto) Eos # (Auto) Baso # (Auto) Immature Gran % Nucleated RBC % Immature Gran # Nucleated RBCs # Immature Plt Fraction Sodium 141 Potassium 3.8 Chloride 105 Carbon Dioxide 28 Anion Gap 11.8 BUN 27 H Creatinine 1.70 H GFR Calculation 93 BUN/Creatinine Ratio 15.00 Glucose 103 POC Glucose Hemoglobin A1c Calculated Osmolality 285.3 Calcium 8.7 Magnesium 2.2 Total Bilirubin 0.60 AST 16 ALT 21 Alkaline Phosphatase 74 Total Creatine Kinase CK-MB (CK-2) Troponin I B-Natriuretic Peptide 127 H Total Protein 5.9 L Albumin 2.5 L Globulin 3.4 Albumin/Globulin Ratio 0.7 L Triglycerides 123 Cholesterol 260 H LDL Cholesterol 197.0 VLDL Cholesterol 24.6 HDL Cholesterol 46 Heart Disease Risk Ratio 5.65 Free T4 1.12 TSH 3rd Generation 1.630 01/27/17 01/27/17 04:35 08:18 WBC RBC Hgb Hct MCV MCH MCHC RDW Plt Count MPV Neut % (Auto) Lymph % (Auto) [place] % (Auto) Eos % (Auto) Baso % (Auto) Neut # (Auto) Lymph # (Auto) [place] # (Auto) Eos # (Auto) Baso # (Auto) Immature Gran % Nucleated RBC % Immature Gran # Nucleated RBCs # Immature Plt Fraction Sodium Potassium Chloride Carbon Dioxide Anion Gap BUN Creatinine GFR Calculation BUN/Creatinine Ratio Glucose POC Glucose 148 H Hemoglobin A1c 11.9 H Calculated Osmolality Calcium Magnesium Total Bilirubin AST ALT Alkaline Phosphatase Total Creatine Kinase CK-MB (CK-2) Troponin I B-Natriuretic Peptide Total Protein Albumin Globulin Albumin/Globulin Ratio Triglycerides Cholesterol LDL Cholesterol VLDL Cholesterol HDL Cholesterol Heart Disease Risk Ratio Free T4 TSH 3rd Generation Specialty Discharge - Follow Up or Referrals <Raudel Beebe - Last Filed: 01/27/17 11:48> Assessment and Plan (1) CHF (congestive heart failure) Status: Acute Current Visit: Yes Qualifiers: Congestive heart failure type: diastolic Congestive heart failure chronicity: acute on chronic Qualified Code(s): I50.33 - Acute on chronic diastolic (congestive) heart failure (2) Hypertensive urgency Status: Acute Current Visit: Yes (3) Obstructive sleep apnea Status: Acute Current Visit: Yes (4) Lower extremity edema Status: Chronic Current Visit: Yes Exam (Progress Note) - Constitutional Vitals: Period Temp Pulse Resp BP Sys/Palacios Pulse Ox Last 24 Hr 97.1 F-98.9 F 83-95 16-28 111-184/11-130 90-99 Result/EKG - Labs CBC & BMP: 01/27/17 04:35 01/27/17 04:35 Labs: Laboratory Results - last 24 hr 01/26/17 01/26/17 01/26/17 11:52 13:21 16:25 WBC RBC Hgb Hct MCV MCH MCHC RDW Plt Count MPV Neut % (Auto) Lymph % (Auto) [place] % (Auto) Eos % (Auto) Baso % (Auto) Neut # (Auto) Lymph # (Auto) [place] # (Auto) Eos # (Auto) Baso # (Auto) Immature Gran % Nucleated RBC % Immature Gran # Nucleated RBCs # Immature Plt Fraction Sodium Potassium Chloride Carbon Dioxide Anion Gap BUN Creatinine GFR Calculation BUN/Creatinine Ratio Glucose POC Glucose 390 H 275 H Hemoglobin A1c Calculated Osmolality Calcium Magnesium Total Bilirubin AST ALT Alkaline Phosphatase Total Creatine Kinase 317 H D CK-MB (CK-2) 5.0 H Troponin I 0.043 B-Natriuretic Peptide Total Protein Albumin Globulin Albumin/Globulin Ratio Triglycerides Cholesterol LDL Cholesterol VLDL Cholesterol HDL Cholesterol Heart Disease Risk Ratio Free T4 TSH 3rd Generation 01/26/17 01/26/17 01/27/17 18:55 19:59 04:35 WBC 8.8 RBC 4.78 Hgb 13.5 L Hct 42.1 MCV 88.1 MCH 28 MCHC 32.1 RDW 13.9 Plt Count 232 MPV 12.1 H Neut % (Auto) 63.9 Lymph % (Auto) 20.8 L [place] % (Auto) 10.5 Eos % (Auto) 4.0 Baso % (Auto) 0.6 Neut # (Auto) 5.6 Lymph # (Auto) 1.8 [place] # (Auto) 0.9 H Eos # (Auto) 0.4 Baso # (Auto) 0.1 Immature Gran % 0.2 Nucleated RBC % 0.0 Immature Gran # 0.02 Nucleated RBCs # 0.00 Immature Plt Fraction 0.0 Sodium Potassium Chloride Carbon Dioxide Anion Gap BUN Creatinine GFR Calculation BUN/Creatinine Ratio Glucose POC Glucose 112 H Hemoglobin A1c Calculated Osmolality Calcium Magnesium Total Bilirubin AST ALT Alkaline Phosphatase Total Creatine Kinase 319 H CK-MB (CK-2) 4.7 H Troponin I 0.057 H D B-Natriuretic Peptide Total Protein Albumin Globulin Albumin/Globulin Ratio Triglycerides Cholesterol LDL Cholesterol VLDL Cholesterol HDL Cholesterol Heart Disease Risk Ratio Free T4 TSH 3rd Generation 01/27/17 01/27/17 01/27/17 04:35 04:35 04:35 WBC RBC Hgb Hct MCV MCH MCHC RDW Plt Count MPV Neut % (Auto) Lymph % (Auto) [place] % (Auto) Eos % (Auto) Baso % (Auto) Neut # (Auto) Lymph # (Auto) [place] # (Auto) Eos # (Auto) Baso # (Auto) Immature Gran % Nucleated RBC % Immature Gran # Nucleated RBCs # Immature Plt Fraction Sodium 141 Potassium 3.8 Chloride 105 Carbon Dioxide 28 Anion Gap 11.8 BUN 27 H Creatinine 1.70 H GFR Calculation 93 BUN/Creatinine Ratio 15.00 Glucose 103 POC Glucose Hemoglobin A1c Calculated Osmolality 285.3 Calcium 8.7 Magnesium 2.2 Total Bilirubin 0.60 AST 16 ALT 21 Alkaline Phosphatase 74 Total Creatine Kinase CK-MB (CK-2) Troponin I B-Natriuretic Peptide 127 H Total Protein 5.9 L Albumin 2.5 L Globulin 3.4 Albumin/Globulin Ratio 0.7 L Triglycerides 123 Cholesterol 260 H LDL Cholesterol 197.0 VLDL Cholesterol 24.6 HDL Cholesterol 46 Heart Disease Risk Ratio 5.65 Free T4 1.12 TSH 3rd Generation 1.630 01/27/17 01/27/17 01/27/17 04:35 08:18 11:35 WBC RBC Hgb Hct MCV MCH MCHC RDW Plt Count MPV Neut % (Auto) Lymph % (Auto) [place] % (Auto) Eos % (Auto) Baso % (Auto) Neut # (Auto) Lymph # (Auto) [place] # (Auto) Eos # (Auto) Baso # (Auto) Immature Gran % Nucleated RBC % Immature Gran # Nucleated RBCs # Immature Plt Fraction Sodium Potassium Chloride Carbon Dioxide Anion Gap BUN Creatinine GFR Calculation BUN/Creatinine Ratio Glucose POC Glucose 148 H 161 H Hemoglobin A1c 11.9 H Calculated Osmolality Calcium Magnesium Total Bilirubin AST ALT Alkaline Phosphatase Total Creatine Kinase CK-MB (CK-2) Troponin I B-Natriuretic Peptide Total Protein Albumin Globulin Albumin/Globulin Ratio Triglycerides Cholesterol LDL Cholesterol VLDL Cholesterol HDL Cholesterol Heart Disease Risk Ratio Free T4 TSH 3rd Generation
--- NOTE | 2017-01-27 16:21 | Sleep Medicine Consult ---
Assessment and Plan (1) Unspecified sleep apnea Status: Acute Assessment and plan: I think it very likely that this patient has significant sleep apnea given his history and clinical presentation. We will start evaluation tonight with a home sleep test and follow-up those results. If possible, we would like this to be done without oxygen therapy. If oxygen needs to be added during the study , it can be done. Current Visit: Yes (2) Hypertensive emergency Status: Acute Assessment and plan: The prevalence rate for obstructive sleep apnea patients with hypertension is 35 %. That rate can be as high as 80% in patients who require 4 or more medications for blood pressure control. Current Visit: Yes (3) DM2 (diabetes mellitus, type 2) Status: Chronic Assessment and plan: The prevalence rate for obstructive sleep apnea in patients with type 2 diabetes can be as high as 86%. Those patients with moderate to severe obstructive sleep apnea are at a greater risk for diabetic nephropathy and neuropathy. Compliance with CPAP therapy for these patients can lead to improvement in glycemic control and improvement in insulin sensitivity. Current Visit: Yes Qualifiers: Diabetes mellitus complication status: with hyperglycemia Diabetes mellitus half-way insulin use: without half-way use Qualified Code(s): E11.65 - Type 2 diabetes mellitus with hyperglycemia History of Present Illness Chief complaint: Sleep apnea History of present illness: Mr. 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 He usually gets off work about 2:58 in the morning and usually retires about 5 AM. He will usually then sleep to 1 to 2 PM. He still is unrefreshed upon awakening and often snores and has been told that he stops breathing during his sleep by his girlfriend. He has never had a prior sleep evaluation. He does have to go to the bathroom once or twice with each sleep period. Does have a history of hypertension and diabetes but recently began developing problems with lower extremity swelling and plantar presentation to the emergency room, was found to be profoundly hypertensive with a component of CHF and was admitted. Echo revealed normal LV function with evidence of diastolic dysfunction. He has been seen by cardiology and admitted by the hospitalist service. Home Medications Medication Instructions Recorded Confirmed Type Quinapril [Accupril] 40 mg PO DAILY 10/01/14 01/26/17 History glipiZIDE [Glucotrol] 10 mg PO BIDAC 10/01/14 01/26/17 History metFORMIN [Glucophage] 500 mg PO BID W/MEALS 10/01/14 01/26/17 History Bumetanide 2 mg PO DAILY 01/26/17 01/26/17 History Omeprazole 20 mg PO DAILY 01/26/17 01/26/17 History Allergies Allergy/AdvReac Type Severity Reaction Status Date / Time Penicillins Allergy RASH Verified 11/09/16 01:52 Review of systems: Otherwise unremarkable from a sleep medicine standpoint. Exam (Pulmonay) H&P - Constitutional Vitals: Period Temp Pulse Resp BP Sys/Palacios Pulse Ox Last 24 Hr 97.1 F-99.4 F 83-94 15-92 111-184/11-130 90-98 Exam: He is alert and responsive in no acute distress. Pupils equal round reactive to light and accommodation. Extraocular movements intact. Oropharynx with a class IV Mallampati exam. Neck is large and supple without adenopathy or thyromegaly. No supraclavicular adenopathy is noted. Chest with symmetrical breath sounds without focal wheeze, rhonchi, or rales. Cardiac exam reveals a regular rhythm without murmur or gallop. Abdomen obese nontender without palpable hepatosplenomegaly or mass. Extremities are without significant clubbing or cyanosis but he does have trace edema. Neurologically, he is grossly intact. He moves all extremities with good strength. Medical,Surgical,& Family Hx - Medical History Cardio: History of: Hypertension Endocrine: History of: Diabetes Mellitus (NIDDM) - Family History Family History: Reports;: Family Diabetes, Family Heart Disease, Family Hypertension - Social History Smoking Status: Never smoker Frequency of Alcohol Use: None Type of Drug Use: None Results - Labs CBC & BMP: 01/27/17 04:35 01/27/17 04:35 Lab Results: I have reviewed the past 24 hour labs Labs: TSH within normal limits. Specialty Discharge - Follow Up or Referrals
[2017-01-27] MEDS: CARVEDILOL 25 MG TABLET PO SCH (20:24)
[2017-01-27] MEDS ORDERED: ATORVASTATIN 40 MG TABLET PO SCH (21:00)
[2017-01-28 05:27] LABS: Basophils % 0.5 % (0.0-0.8); Eosinophils # 0.4 10*3/uL (0.0-0.87); Eosinophils % 5.6 % (0.00-10.9); Hematocrit 39.2 VOL% (42.0-52.0); Hemoglobin 12.8 GM/DL (14.0-18.0); Immature Granulocytes % 0.3 %; Immature Granulocytes Absolute 0.02 #; Lymphocytes # 2.1 10*3/uL (1.4-4.0); Lymphocytes % 26.9 % (21.2-54.2); Mean Corpuscular HGB Conc 32.7 GM/DL (32-36); Mean Corpuscular Hemoglobin 29 PG (27-34); Mean Corpuscular Volume 87.5 FL (87-102); Mean Platelet Volume 11.6 FL (9.6-12.0); Monocytes # 0.9 10*3/uL (0.11-0.8); Monocytes % 12.3 % (1.7-12.7); Neutrophils # 4.2 10*3/uL (1.4-7.4); Neutrophils % 54.4 % (38.7-73.9); Platelet Count 221 T/CUMM (130-400); Red Blood Count 4.48 MC/CUMM (3.8-5.5); Red Cell Distribution Width 14.1 % (9.3-17.3); White Blood Count 7.7 T/CUMM (4-12)
[2017-01-28 05:53] LABS: Calcium 8.5 MG/DL (8.5-10.1); Magnesium 2.1 MG/DL (1.8-2.4); Osmolality,Calculated 286.3 MOS/KG (273-304); Potassium 3.6 MMOL/L (3.5-5.1)
--- NOTE | 2017-01-28 07:47 | Physician Query Form ---
CLICK EDIT DOCUMENT TO SELECT QUERY ANSWER --> OK --> SIGN Giovanna Stoddard RN, CCDS Certified Clinical Patient Liaison W) [phone] (f) [phone] [email or web address] PROVIDERS: Make your selection(s) from the choices in EACH section by typing an "x" and enter comments in the comment section. Please use your independent medical judgment in providing your response. This request does not imply that any particular answer is desired or expected. CLINICAL INDICATORS: (Providers should not edit this section) The medical record indicates that the patient was admitted with hypertension, creatinine of 1.20 on the that has increased to 1.70 on the 18th, GFR 138# on the that has decreased to 93 on the 18 and the patient is being diuresed for CHF. Clarify which of the following most accurately represents the patient's renal status: (X ) Acute kidney injury (non-traumatic) ( ) Acute renal failure (X ) Acute renal failure with underlying Chronic Kidney Disease (CKD) - please provide stage below ( ) Acute renal failure with pathological renal lesion ( ) Acute renal failure with necrosis ( ) tubular ( ) medullary ( ) cortical ( ) CKD - please provide stage below ( ) End Stage Renal Disease ( ) Acute interstitial nephritis ( ) Hepatorenal syndrome ( ) Other, please specify: ( ) Clinically unable to determine Chronic Kidney Disease Stages Source: National Kidney Disease Foundation ( ) Stage I (eGFR > or = 90) X ) Stage II (eGFR 60 - 89) ( ) Stage III (eGFR 30 - 59) ( ) Stage IV (eGFR 15 - 29) ( ) Stage V (eGFR < 15 or dialysis) COMMENTS: PLEASE ALSO DOCUMENT RESPONSE IN PROGRESS NOTES AND/OR DISCHARGE SUMMARY Use of terms such as suspected, likely, or probable (associated with a specific diagnosis that is being evaluated, monitored, or treated as if it exists) are acceptable and can be restated in the discharge summary if not ruled out. MTDD
--- NOTE | 2017-01-28 08:15 | XRay Report ---
History short of breath Comparison 01/26/2017 The cardiac silhouette is enlarged with vascular congestion. There is mild thickening of minor fissure. There are mildly increasing diffuse hazy pulmonary opacities without consolidation Impression: Mildly increasing pulmonary edema PROCEDURE INTERPRETED AT [facility] DEPARTMENT OF RADIOLOGY Final Report Signed by: Dr. Meka Gunderson
--- NOTE | 2017-01-28 08:19 | Cardiology Progress Note ---
Assessment and Plan (1) CHF (congestive heart failure) Status: Acute Assessment and plan: SEE PLAN OF CARE LISTED BELOW. Current Visit: Yes Qualifiers: Congestive heart failure type: diastolic Congestive heart failure chronicity: acute on chronic Qualified Code(s): I50.33 - Acute on chronic diastolic (congestive) heart failure (2) Unspecified sleep apnea Status: Acute Assessment and plan: SEE PLAN OF CARE LISTED BELOW. Current Visit: Yes (3) Hypertensive urgency Status: Acute Assessment and plan: SEE PLAN OF CARE LISTED BELOW. Current Visit: Yes (4) Lower extremity edema Status: Chronic Assessment and plan: SEE PLAN OF CARE LISTED BELOW. Current Visit: Yes (5) Morbid obesity Status: Chronic Assessment and plan: SEE PLAN OF CARE LISTED BELOW. Current Visit: Yes (6) DM2 (diabetes mellitus, type 2) Status: Chronic Assessment and plan: SEE PLAN OF CARE LISTED BELOW. Current Visit: Yes Qualifiers: Diabetes mellitus complication status: with hyperglycemia Diabetes mellitus director long term care insulin use: without fdc use Qualified Code(s): E11.65 - Type 2 diabetes mellitus with hyperglycemia Cardiology - PN: Subj Interval history: BREADMAN: New to cardiology, Dr. Garner SUMMARY Mr. Hammond, 41 year old BM with history of hypertension, type 2 diabetes, untreated sleep apnea, obesity and sedentary lifestyle presented with hypertensive urgency, CHF and chest tightness. He was diuresed in the emergency department and placed on Cardene drip. This is now been titrated off. Venous Doppler revealed no evidence of DVT. Echocardiogram this admission revealed preserved EF 55%. Grade 3 diastolic dysfunction. Moderate concentric LVH. 2016 Patient seen and examined in the CCU. He is doing well this morning sitting up in chair without distress. Eating breakfast. He is without complaints this morning and reports that he is feeling better. He is without complaints of chest pain, heaviness or tightness. Breathing continues to improve. Still experiencing orthopnea. Chest x-ray reveals worsening pulmonary edema. BNP jose maria overnight. Continues to be very edematous to his lower extremities. According to his daily weights, his weight has increased from admission. I will increase his Lasix back to twice a day and monitor BMP closely. Continue beta-blockade and BING inhibitor. Treat underlying sleep apnea. Blood pressure continues to be suboptimally controlled. Diastolic blood pressure above 100. I have increased his BING inhibitor dose today. Patient is stable for transfer upstairs from a cardiac standpoint. I will discuss with Dr. Beebe and await his additional recommendations. IMPRESSION AND PLAN: 1. ACUTE ON CHRONIC DIASTOLIC CONGESTIVE HEART FAILURE - Preserved EF, 55%. Grade 3 diastolic dysfunction. Shortness of breath is improving. However, patient's chest x-ray is worsening. BNP jose maria overnight. According to his daily weights, his weight has increased from admission. Diuresed reasonably well yesterday. I will increase his Lasix back to twice a day and monitor creatinine and electrolyte closely. Daily BMP. Continue beta-asa and BING inhibitor. Treat underlying sleep apnea. I will discuss with Dr. Beebe and await his additional recommendations. 2. HYPERTENSIVE URGENCY - Cardene drip titrated off. Blood pressure continues to be suboptimally controlled. Diastolic blood pressure above 100. I have increased his BING inhibitor dose. Will monitor blood pressure and continue to adjust as needed this hospitalization. 3. DIABETES - Hemoglobin A1c 11.9. Management per attending. Blood sugars reasonably well controlled. 4. UNSPECIFIED SLEEP APNEA - Sleep medicine on board. Evaluation done yesterday evening with a home sleep test. 5. DYSLIPIDEMIA - LDL 197. Continue lipid-lowering agent. Repeat lipid panel in 4-6 weeks. Exam (Progress Note) - Constitutional Vitals: Period Temp Pulse Resp BP Sys/Palacios Pulse Ox Last 24 Hr 96.8 F-98.5 F 80-94 14-92 129-178/72-110 92-100 Exam: General: Appears well with no apparent distress. Pleasant and cooperative. Appears comfortable. HEENT: PERRL, normocephalic, atraumatic. Mucous membranes moist. No jaundice noted. Conjunctiva moist and clear, sclerae anicteric Neck: JVD difficult to assess due to habitus, no thyromegaly or lymphadenopathy noted. No carotid bruit appreciated Cardiac: Regular rate and rhythm. Soft systolic murmur. No rub or gallop. Lungs: Clear to auscultation without accessory muscle use to assist the respiratory pattern. Decreased lung sounds in bilateral bases. Intermittent oxygen. Abdomen: Soft, bowel sounds normoactive. Nontender and nondistended. Obese. No abdominal bruit or thrill noted. No masses noted. Extremities: No clubbing, cyanosis noted. 2-3+ pitting edema to bilateral lower extremities. Upper extremity pulses 2+. Lower extremity pulses 2+. Capillary refill less than 3 seconds. Skin: No unusual lesions or rashes. No skin breakdown appreciated. Neuro: Awake, alert and oriented 3. Moves all extremities well without hemiparesis or paralysis. No essential tremor is appreciated. Result/EKG - Labs CBC & BMP: 01/28/17 04:43 01/28/17 04:43 Lab Results: I have reviewed the past 24 hour labs Labs: Laboratory Results - last 24 hr 01/27/17 01/27/17 01/27/17 08:18 11:35 12:05 WBC RBC Hgb Hct MCV MCH MCHC RDW Plt Count MPV Neut % (Auto) Lymph % (Auto) [place] % (Auto) Eos % (Auto) Baso % (Auto) Neut # (Auto) Lymph # (Auto) [place] # (Auto) Eos # (Auto) Baso # (Auto) Immature Gran % Nucleated RBC % Immature Gran # Nucleated RBCs # Immature Plt Fraction Sodium Potassium Chloride Carbon Dioxide Anion Gap BUN Creatinine GFR Calculation BUN/Creatinine Ratio Glucose POC Glucose 148 H 161 H Calculated Osmolality Calcium Magnesium B-Natriuretic Peptide 88 01/27/17 01/27/17 01/28/17 16:46 20:08 04:43 WBC 7.7 RBC 4.48 Hgb 12.8 L Hct 39.2 L MCV 87.5 MCH 29 MCHC 32.7 RDW 14.1 Plt Count 221 MPV 11.6 Neut % (Auto) 54.4 Lymph % (Auto) 26.9 [place] % (Auto) 12.3 Eos % (Auto) 5.6 Baso % (Auto) 0.5 Neut # (Auto) 4.2 Lymph # (Auto) 2.1 [place] # (Auto) 0.9 H Eos # (Auto) 0.4 Baso # (Auto) 0.0 Immature Gran % 0.3 Nucleated RBC % 0.0 Immature Gran # 0.02 Nucleated RBCs # 0.00 Immature Plt Fraction 0.0 Sodium Potassium Chloride Carbon Dioxide Anion Gap BUN Creatinine GFR Calculation BUN/Creatinine Ratio Glucose POC Glucose 115 H 137 H Calculated Osmolality Calcium Magnesium B-Natriuretic Peptide 01/28/17 01/28/17 01/28/17 04:43 04:43 08:00 WBC RBC Hgb Hct MCV MCH MCHC RDW Plt Count MPV Neut % (Auto) Lymph % (Auto) [place] % (Auto) Eos % (Auto) Baso % (Auto) Neut # (Auto) Lymph # (Auto) [place] # (Auto) Eos # (Auto) Baso # (Auto) Immature Gran % Nucleated RBC % Immature Gran # Nucleated RBCs # Immature Plt Fraction Sodium 141 Potassium 3.6 Chloride 105 Carbon Dioxide 28 Anion Gap 11.6 BUN 30 H Creatinine 1.20 GFR Calculation 141 BUN/Creatinine Ratio 25.00 H Glucose 107 H POC Glucose 93 Calculated Osmolality 286.3 Calcium 8.5 Magnesium 2.1 B-Natriuretic Peptide 122 H Specialty Discharge - Follow Up or Referrals
[2017-01-28] MEDS ORDERED: QUINAPRIL 20 MG TABLET PO SCH (08:48)
[2017-01-28] MEDS ORDERED: FUROSEMIDE 20 MG/2 ML VIAL ONE (08:54)
[2017-01-28] MEDS ORDERED: TRIAMTERENE/HCTZ 37.5-25 MG CAPSULE PO SCH (09:00)
[2017-01-28] MEDS ORDERED: FUROSEMIDE 40 MG/4 ML VIAL IV SCH (09:00)
[2017-01-28] MEDS ORDERED: amLODIPine 5 MG TABLET PO SCH (09:00)
[2017-01-28] MEDS: INSULIN GLARGINE 100 UNIT/ML SUBCUT SCH (09:07)
[2017-01-28] MEDS: ASPIRIN EC 81 MG TABLET PO SCH (09:11)
[2017-01-28] MEDS: metFORMIN 500 MG TABLET PO SCH (09:11)
[2017-01-28] MEDS: PANTOPRAZOLE 40 MG TABLET PO SCH (09:11)
[2017-01-28] MEDS: glipiZIDE 10 MG TABLET PO SCH (09:11)
[2017-01-28] MEDS: INSULIN REGULAR 100 UNIT/ML SUBCUT SCH ×2 (09:12→13:18)
[2017-01-28] MEDS: ENOXAPARIN 40 MG/0.4 ML SYRINGE SUBCUT SCH (09:12)
[2017-01-28] MEDS: CARVEDILOL 25 MG TABLET PO SCH (09:12)
--- NOTE | 2017-01-28 10:07 | Discharge Summary ---
Hospital Course - Hospital Course Hospital Course: The patient was admitted to the hospital with hypertensive emergency. The patient had congestive heart failure due to diastolic dysfunction on account of essential hypertension out of control off medications. The patient was treated in the intensive care unit with intravenous Cardene and diuretic. He may transition to oral medications and is now ready for discharge home. On the date of discharge, the chest is clear and abdomen soft. Heart has regular rate and rhythm. Patient medications were reconciled upon admission, and again at the time of discharge. The patient was screened for tobacco use and found to be a [occasional smoker]. The patient was given 4 minutes of tobacco avoidance education. The patient's medical decsion maker is [themself], and when asked, they asked to be [Full code]. Discharge Time was [32] minutes, including final examination, evaluation and planning, education, reconciliation of medications, writing prescriptions, coordinating care with case investigator, and preparing discharge documentation. - Time spent with patient Time with patient DS: Greater than 30 minutes Diagnosis - Discharge Diagnosis (1) CHF (congestive heart failure) Status: Chronic (2) Hypertensive emergency Status: Resolved (3) DM2 (diabetes mellitus, type 2) Status: Chronic (4) Morbid obesity Status: Chronic (5) Obstructive sleep apnea Status: Chronic Specialty Discharge - Follow Up or Referrals Discharge Plan - Discharge Data Disposition: Disch To Home/Self Care Condition at Discharge: Stable Discharge Diet: diabetic diet Activity: resume usual activities as tolerated - Discharge Medications New Carvedilol [Coreg] 25 mg PO BID #100 tablet Furosemide Tab [Lasix Tab] 40 mg PO DAILY #60 tablet glipiZIDE [Glucotrol] 10 mg PO BIDAC #100 tablet metFORMIN [Glucophage] 1,000 mg PO BID W/MEALS #100 tablet Quinapril [Accupril] 40 mg PO DAILY #90 tablet amLODIPine [Norvasc] 10 mg PO DAILY #60 tablet cloNIDine TAB [Catapres Tab] 0.2 mg PO BID #60 tablet Discontinued metFORMIN [Glucophage] 500 mg PO BID W/MEALS glipiZIDE [Glucotrol] 10 mg PO BIDAC Quinapril [Accupril] 40 mg PO DAILY Bumetanide 2 mg PO DAILY Omeprazole 20 mg PO DAILY - Follow Up or Referral Follow Up: Raudel Beebe MD [Physician] - - Forms/Instructions Instructions: Heart Healthy Diet (GEN), Hypertensive Crisis (GEN) Exam - Constitutional Vitals: Period Temp Pulse Resp BP Sys/Palacios Pulse Ox Last 24 Hr 96.8 F-98.5 F 80-89 14-25 129-167/72-110 92-100 Discharge Results Procedures and tests throughout hospitalization: Pending Orders 01/29/17 04:00 BMP w/ Mg [Basic Metabolic Panel w/Mg] IN AM CBC [Comp Blood Count Auto Diff] IN AM 01/30/17 04:00 BMP w/ Mg [Basic Metabolic Panel w/Mg] IN AM CBC [Comp Blood Count Auto Diff] IN AM 01/31/17 04:00 BMP w/ Mg [Basic Metabolic Panel w/Mg] IN AM CBC [Comp Blood Count Auto Diff] IN AM Labs on day of discharge: Labs from last 24 hours 01/28/17 01/28/17 01/28/17 08:00 04:43 04:43 WBC RBC Hgb Hct MCV MCH MCHC RDW Plt Count MPV Neut % (Auto) Lymph % (Auto) [place] % (Auto) Eos % (Auto) Baso % (Auto) Neut # (Auto) Lymph # (Auto) [place] # (Auto) Eos # (Auto) Baso # (Auto) Immature Gran % Nucleated RBC % Immature Gran # Nucleated RBCs # Immature Plt Fraction Sodium 141 Potassium 3.6 Chloride 105 Carbon Dioxide 28 Anion Gap 11.6 BUN 30 H Creatinine 1.20 GFR Calculation 141 BUN/Creatinine Ratio 25.00 H Glucose 107 H POC Glucose 93 Calculated Osmolality 286.3 Calcium 8.5 Magnesium 2.1 B-Natriuretic Peptide 122 H 01/28/17 01/27/17 01/27/17 04:43 20:08 16:46 WBC 7.7 RBC 4.48 Hgb 12.8 L Hct 39.2 L MCV 87.5 MCH 29 MCHC 32.7 RDW 14.1 Plt Count 221 MPV 11.6 Neut % (Auto) 54.4 Lymph % (Auto) 26.9 [place] % (Auto) 12.3 Eos % (Auto) 5.6 Baso % (Auto) 0.5 Neut # (Auto) 4.2 Lymph # (Auto) 2.1 [place] # (Auto) 0.9 H Eos # (Auto) 0.4 Baso # (Auto) 0.0 Immature Gran % 0.3 Nucleated RBC % 0.0 Immature Gran # 0.02 Nucleated RBCs # 0.00 Immature Plt Fraction 0.0 Sodium Potassium Chloride Carbon Dioxide Anion Gap BUN Creatinine GFR Calculation BUN/Creatinine Ratio Glucose POC Glucose 137 H 115 H Calculated Osmolality Calcium Magnesium B-Natriuretic Peptide 01/27/17 01/27/17 12:05 11:35 WBC RBC Hgb Hct MCV MCH MCHC RDW Plt Count MPV Neut % (Auto) Lymph % (Auto) [place] % (Auto) Eos % (Auto) Baso % (Auto) Neut # (Auto) Lymph # (Auto) [place] # (Auto) Eos # (Auto) Baso # (Auto) Immature Gran % Nucleated RBC % Immature Gran # Nucleated RBCs # Immature Plt Fraction Sodium Potassium Chloride Carbon Dioxide Anion Gap BUN Creatinine GFR Calculation BUN/Creatinine Ratio Glucose POC Glucose 161 H Calculated Osmolality Calcium Magnesium B-Natriuretic Peptide 88 DS: Provider Date of admission: 01/26/17 06:57 Primary care physician: . No PCP Attending physician on admission: Sivakumar Amador MD Consults: 01/26/17 06:56 Consult to Physician [CONS] Routine Comment: Consulting Provider: Cardiology - [facility] Person Notified: Dr. Garner Date Notified: 01/26/17 01/26/17 07:00 Consult to Case Mgmt/Social Srvs [CONS] Routine Reason for Case Mgmt/Social Srvs: Discharge Planning 01/26/17 09:41 Consult to Physician [CONS] Routine Comment: Consulting Provider: Radha Og When should Consulting Provider be notified: In am 01/26/17 09:42 Consult to Cardiac Rehabilitation [CONS] Routine Reason for Cardiac Rehabilitation: Risk Factor Modification 01/26/17 12:17 Consult to Sleep Center [CONS] Routine Reason for Sleep Center: Sleep Center Physician Consult Comment: heena Discharging clinician: Uli Hammond MD
[2017-01-28 12:13] VITALS: BP 152/104
--- NOTE | 2017-01-28 14:27 | Sleep Medicine Progress Note ---
Assessment and Plan (1) Unspecified sleep apnea Status: Acute Assessment and plan: This patient does have obstructive sleep apnea and does need treatment. This could impact his well-being medically. He had presented with difficult to control hypertension and lower extremity swelling. We will contact [facility] and see if we can work out some type of arrangement for this patient. Current Visit: Yes (2) Hypertensive emergency Status: Resolved Current Visit: Yes (3) DM2 (diabetes mellitus, type 2) Status: Chronic Current Visit: Yes Qualifiers: Diabetes mellitus complication status: with hyperglycemia Diabetes mellitus termite technician insulin use: without usp use Qualified Code(s): E11.65 - Type 2 diabetes mellitus with hyperglycemia Sleep Medicine Subjective Interval history: This patient had evidence of severe obstructive sleep apnea on his home sleep test with a respiratory event index of 47.2 and O2 desaturation to lows of 67%. He definitely would benefit from therapy. He does not have any insurance. 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 We will check with [facility]. Ideally, the cheapest way to treat him would be with a loaner auto titration device for a couple of weeks then set him up with a use CPAP with that prescribed setting based on those results with auto titration. We will need to check with [place] to see if that is an option. We will schedule him for follow-up in the sleep clinic. Ideally, he should be titrated in the sleep lab but this would be an expensive endeavor for him. I have explained to him that it is without a doubt that his severe sleep apnea could contributing factor to his medical issues of hypertension and swelling. Exam (Progress Note) - Constitutional Vitals: Period Temp Pulse Resp BP Sys/Palacios Pulse Ox Last 24 Hr 96.8 F-98.5 F 80-85 14-25 137-180/84-110 92-100 Results - Labs CBC & BMP: 01/28/17 04:43 01/28/17 04:43 Lab Results: I have reviewed the past 24 hour labs Specialty Discharge - Follow Up or Referrals Follow up with: Miller Garner MD [Physician] - 1 Week (with BMP February 04 at 2:00 pm for lab and see Dr. Garner at 2:30 pm ) Radha Og MD [Physician] - Raudel Beebe MD [Physician] - 1 Week
== END 2017-01-28 14:26 | disposition home or self-care (01) | DRG 304 ==
LOC: N.ED 02:09 → N.EDINP 06:56 → SUATTDRO 06:56 → N.CC 07:27
PROVIDERS: ADMIT Family Medicine; ATTEND Internal Medicine